=== PATIENT | female | born 1970 | race Caucasian/White ===

== ENCOUNTER 2016-10-27 09:59 | Emergency (ER) | payer OTHER ==
[2016-10-27 10:25] VITALS: TEMP 98.4; BMI 40.6
--- NOTE | 2016-10-27 10:43 | PDOC ---
History of Present Illness - General Chief Complaint: Migraine Headache Stated Complaint: MIGRAINE X 1WEEK Time Seen by Provider: 10/27/16 10:06 History Source: Patient Exam Limitations: No Limitations - History of Present Illness Initial Comments: 10/27/16 11:03 46y F hx of htn, dm, migraine headaches, presents with complaing of her typicaly migraine sypmtoms. Pt notes the pain is mostly in the posterior occiptum radiates anteriorly bilaterally and is assocciated with photophobia and phonophobia, pain x 1 week, gradual onset, pt states she has been dealing with these headaches for a few years and had recently taken 6 months off for rehab - pt seems to be getting multiple modalities for her pain management including trigger point injections, PT, massage (as pt states there is an association with muscular pain in the back). Pt follows up with a heaache specialist. pt took immitrex 2 days ago w/o improvement (Though after onset of her symptoms) ( pt denie sany vision changes, numbness/tingling/weaknes, fever/chills, cough, abd pain, vomiting, abd pain, cp, urinary or bowel problems. Past History - Past Medical History Allergies/Adverse Reactions: Allergies Allergy/AdvReac Type Severity Reaction Status Date / Time vicente Allergy Mild Hives Verified 10/27/16 10:09 iodine [Iodine] Allergy Verified 10/27/16 10:09 prochlorperazine edisylate Allergy Verified 10/27/16 10:09 [From Compazine] prochlorperazine maleate Allergy Verified 10/27/16 10:09 [From Compazine] metoclopramide HCl AdvReac Verified 10/27/16 10:09 [From Reglan] Home Medications: Ambulatory Orders Atorvastatin Ca [Lipitor -] 20 mg PO HS 07/21/13 Dulaglutide [Trulicity] 0.75 mg SQ WEEKLY 10/27/16 Gabapentin [Neurontin] 1,000 mg PO HS 10/27/16 Lisinopril/Hydrochlorothiazide [Lisinopril-Hctz 20-25 mg Tab] 1 each PO HS 10/27 Metformin HCl [Glucophage] 1,000 mg PO DAILY 10/27/16 Pantoprazole Sodium [Protonix] 40 mg PO HS 10/27/16 Venlafaxine HCl ER [Effexor Xr -] 225 mg PO HS 10/27/16 Asthma: Yes (Patient has been hospitalized for asthma few times, as a child she has been) Diabetes: Yes GI Disorders: Yes (H. Pylori) HTN: Yes Hypercholesterolemia: Yes Other medical history: Migraine, Goes to [facility] - Immunization History Td Vaccination: Yes Immunization Up to Date: Yes - Psycho/Social/Smoking Cessation Hx Anxiety: No Suicidal Ideation: No Smoking Status: No Smoking History: Never smoked Number of Cigarettes Smoked Daily: 0 Hx Alcohol Use: Yes (RARE) Drug/Substance Use Hx: No Substance Use Type: None Review of Systems - Review of Systems Able to Perform ROS?: Yes Comments:: 10/27/16 11:10 Constitutional - no reported Fever, Chills, weakness, HEENT: no reported vision changes, sore throat Respiratory: no reported cough, sob, hemoptysis Cardiac: no reported chest pain, palpitations, light headedness, leg swelling Abd/GI: no reported abd pain, nausea, vomiting, blood per rectum, melena, diarrhea : no reported dysuria, frequency, discharge Musculskelatal - no reported back pain, joint swelling skin - no reported bruising, erythema, rash neurological: +headache, photophobia, phonophobia no reported numbness, focal weakness, tingling, ataxia, weakness hematologic: no reported anemia, easy bruising, easy bleeding *Physical Exam - Vital Signs Last Vital Signs Temp Pulse Resp BP Pulse Ox 98.4 F 110 H 16 160/102 98 10/27/16 10:00 10/27/16 10:00 10/27/16 10:00 10/27/16 10:00 10/27/16 10:00 - Physical Exam Comments: 10/27/16 11:10 GENERAL: The patient is awake, alert, and fully oriented, Nontoxic - in no acute distress. HEAD: Normocephalic, atraumatic, +mild reproducible tendernes on scalp on occipitum and temples/forhead EYES: PEERL, pupils 4mm b/l, extraocular movements intact, sclera anicteric, conjunctiva clear. ENT: Normal voice, Moist mucous membranes. NECK: Normal range of motion, supple LUNGS: Breath sounds equal, clear to auscultation bilaterally. No wheezes, no rhonchi, no rales. HEART: slightly tachcyardic, normal S1 and S2 without murmur, rub or gallop. ABDOMEN: Soft, nontender, normoactive bowel sounds. No guarding, no rebound. . No CVA tenderness EXTREMITIES: Normal range of motion, no edema. No clubbing or cyanosis. No cords, erythema, or tenderness. NEUROLOGICAL: No facial assymetry, Normal speech, moving all 4 extremities spontaneously and symmetrically, sensation intact distally, normal finger to nose, rapid alternating movements. PSYCH: Normal mood, normal affect. SKIN: Warm, Dry, normal turgor, ED Treatment Course - LABORATORY CBC & Chemistry Diagram: 10/27/16 11:00 10/27/16 11:00 Medical Decision Making - Medical Decision Making 10/27/16 11:13 46y F preswneting with headache normal neuro exam and pt is otherwise well appeaering slightly tachy - likey due to mild dehydration/caffeine efefct as pt states she hasnt had any breakfast beside a cup of coffee suspect tension headache with migraine elemnts will give toradol/zofran/mag/fluids will ck basic labs will reasses 10/27/16 12:27 pt feeling improved will dc the pt with outpatient management and fu return precautions were discussed pt abmulating in th eED without distress I discussed the physical exam findings, ancillary test results and final diagnoses with the patient. I answered all of the patient's questions. The patient was satisfied with the care received and felt comfortable with the discharge plan and treatment plan. The patient will call their primary care physician within 24 hours to arrange follow-up and will return to the Emergency Department with any new, persistent or worsening symptoms. *DC/Admit/Observation/Transfer Diagnosis at time of Disposition: Tension headache - Discharge Dispostion Disposition: HOME Condition at time of disposition: Good Admit: No - Referrals Referrals: Shauna Smyth [Other] - Patient Instructions Printed Discharge Instructions: DI for Hormonal and Tension Headaches, DI for Migraine Additional Instructions: Return to the emergency department immediately with ANY new, persistent or worsening symptoms including worsening headache, vision changes, numbness/ tingling/weakness, persistent nausea and vomiting or any other concerns. Make sure you are getting adaqute sleep and hydration. You MUST call and follow up with Dr. Smyth next week for further evaluation of your symptoms. Your emergency department visit is not complete without a followup with your doctor for reevaluation. Results were discussed with you. Please make sure your doctor reviews the results of your emergency evaluation. Print Language: [id number]
[2016-10-27] MEDS ORDERED: SODIUM CHLORIDE 1,000 ML IV ONE (10:44)
[2016-10-27] MEDS ORDERED: MAGNESIUM SULF 50% (8.12 MEQ/2 ML-1 GM VIAL) IVPB ONE (10:45)
[2016-10-27] MEDS ORDERED: KETOROLAC TROMETHAMINE 30 MG/1 ML VIAL IVPUSH ONE (10:45)
[2016-10-27] MEDS ORDERED: KETOROLAC TROMETHAMINE 30 MG/1 ML VIAL ONE (10:48)
[2016-10-27] MEDS ORDERED: MAGNESIUM SULF 50% (8.12 MEQ/2 ML-1 GM VIAL) ONE (10:48)
[2016-10-27] MEDS ORDERED: ONDANSETRON 4 MG/2 ML VIAL IVPB ONE (10:48)
[2016-10-27] MEDS ORDERED: CYCLOBENZAPRINE HCL 10 MG TABLET (FP) PO ONE (11:18)
[2016-10-27] MEDS ORDERED: ONDANSETRON 4 MG/2 ML VIAL ONE (11:19)
[2016-10-27] MEDS ORDERED: CYCLOBENZAPRINE HCL 10 MG TABLET (FP) ONE (11:19)
[2016-10-27] MEDS: CYCLOBENZAPRINE HCL 10 MG TABLET (FP) PO ONE ×2 (11:20→12:06)
[2016-10-27 11:29] LABS: BASOPHIL 0.8 % (0-2.0); MCH 24.2 pg (25.7-33.7); MCHC 31.8 g/dl (32.0-36.0); MEAN CELL VOLUME 76.2 fl (80-96); NEUTROPHILS 68.7 % (42.8-82.8); PLATELET COUNT 333 K/MM3 (134-434); RDW 15.7 % (11.6-15.6); WHITE BLOOD COUNT 11.1 K/mm3 (4.0-10.8)
[2016-10-27 11:37] LABS: ALBUMIN 3.9 g/dl (3.5-5.0); ALK PHOS 170 U/L (32-92); ANION GAP 10 (8-16); BILIRUBIN,TOTAL 0.4 mg/dl (0.2-1.0); CALCIUM 9.3 mg/dl (8.4-10.2); CO2 21 mmol/L (22-28); CREATININE 0.5 mg/dl (0.6-1.3); GLUCOSE,RANDOM 216 mg/dl (74-106); SGOT/AST 52 U/L (10-42); SGPT/ALT 40 U/L (10-40); TOT PROT 7.3 g/dl (6.4-8.3)
[2016-10-27 12:34] VITALS: BP 150/100; PULSE 89
== END 2016-10-27 12:47 | disposition home or self-care (01) ==
LOC: FER 09:59
PROC: 3E0333Z Introduction of Anti-inflammatory into Peripheral Vein, Percutaneous Approach (ICD-10-PCS; principal; 2016-10-27)
PROC: 3E033GC Introduction of Other Therapeutic Substance into Peripheral Vein, Percutaneous Approach (ICD-10-PCS; 2016-10-27)
PROC: 3E0337Z Introduction of Electrolytic and Water Balance Substance into Peripheral Vein, Percutaneous Approach (ICD-10-PCS; 2016-10-27)
DX: G44.209 Tension-type headache, unspecified, not intractable (principal); E11.9 Type 2 diabetes mellitus without complications; J45.909 Unspecified asthma, uncomplicated; I10 Essential (primary) hypertension; E78.00 Pure hypercholesterolemia, unspecified
CPT/HCPCS: 36415; 80053; 85025; 99282-25